=== PATIENT | female | born 1995 | race Hispanic/Latino ===

== ENCOUNTER 2021-04-09 00:35 | Outpatient (CLI) | payer OTHER ==
[~2021-04-09] VITALS: Ht 162.6 cm; Wt 63.1 kg
[2021-04-09 00:53] VITALS: BP 120/79
[2021-04-09 02:13] VITALS: BP 128/80
== END 2021-04-09 02:31 | disposition home or self-care (01) ==
LOC: M LDO 00:35
PROVIDERS: ATTEND Obstetrics & Gynecology
DX: O47.1 False labor at or after 37 completed weeks of gestation (principal); Z3A.38 38 weeks gestation of pregnancy

== ENCOUNTER 2021-04-09 17:34 | Inpatient (IN) | payer OTHER ==
[~2021-04-09] VITALS: Ht 162.6 cm; Wt 61.8 kg
[2021-04-09] MEDS ORDERED: LACTATED RINGER'S 1000 ML IV STA (17:56)
[2021-04-09] MEDS ORDERED: PENICILLIN G POTASSIUM IV 5 MU in D5W MINI-BAG PLUS 100 ML IV STA (17:56)
[2021-04-09] MEDS ORDERED: OXYTOCIN DRIP 30 UNITS in IV 1 EA IV PRN (18:00)
[2021-04-09] MEDS ORDERED: LIDOCAINE 1% MDV 20ML VIAL INFIL PRN (18:00)
[2021-04-09] MEDS ORDERED: LR 1,000 ML IV SCH (18:00)
[2021-04-09] MEDS ORDERED: PENICILLIN G POTASSIUM 5 MU VIAL As Ordered ONE (18:04)
[2021-04-09 18:30] LABS: HEMATOCRIT 31.2 % (36.0-47.0); HEMOGLOBIN 10.2 g/dl (12.0-15.5); MEAN CORPUSCULAR HEMOGLOBIN 26.6 pg (27.0-33.0); MEAN CORPUSCULAR HGB CONC 32.7 g/dl (32.0-36.5); MEAN CORPUSCULAR VOLUME 81.5 fl (80.0-96.0); PLATELET COUNT, AUTOMATED 250 10^3/uL (150-450); RED BLOOD COUNT 3.83 10^6/uL (4.00-5.40); WHITE BLOOD COUNT 7.4 10^3/uL (4.0-10.0)
[2021-04-09] MEDS ORDERED: FENTANYL 2MCG/ML ROPIVACAINE 0.2% IN 0.9% NACL 100ML IVBAG As Ordered ONE (18:47)
[2021-04-09] MEDS ORDERED: MEASLES,MUMPS,RUBELLA VACCINE INJ (MMR-II) (90707) SC SCH (19:55)
[2021-04-09] MEDS ORDERED: METHYLERGONOVINE MALEATE 0.2 MG TAB PO PRN (19:55)
[2021-04-09] MEDS ORDERED: DIBUCAINE 1% OINTMENT 30GM TOP PRN (19:55)
[2021-04-09] MEDS ORDERED: RHOGAM 300 MCG (1500 IU) INJ (J2790) IM SCH (19:55)
[2021-04-09] MEDS ORDERED: ACETAMINOPHEN TAB 650MG DOSE (2X325MG) PO PRN (19:55)
[2021-04-09] MEDS: IBUPROFEN 800 MG TAB PO PRN (20:49)
[2021-04-09 20:52] VITALS: BP 109/67
[2021-04-09] MEDS ORDERED: PENICILLIN G POTASSIUM IV 2.5 MU in IV 1 EA IV SCH (22:15)
[2021-04-10 06:07] VITALS: BP 121/64
[2021-04-10] MEDS: PRENATAL VITAMINS CHEWABLE TABLET PO SCH (08:12)
[2021-04-10] MEDS: IBUPROFEN 800 MG TAB PO PRN ×2 (08:21→20:01)
[2021-04-10] MEDS: DOCUSATE SODIUM 100MG CAPSULE PO PRN ×2 (08:21→20:43)
[2021-04-10 18:00] VITALS: BP 109/74
[2021-04-11 06:00] VITALS: BP 119/74
[2021-04-11] MEDS ORDERED: ACET1TAB55 PO (07:19)
[2021-04-11] MEDS ORDERED: IBUP80TA PO (07:19)
[2021-04-11] MEDS: PRENATAL VITAMINS CHEWABLE TABLET PO SCH (08:02)
[2021-04-11] MEDS: DOCUSATE SODIUM 100MG CAPSULE PO PRN (08:02)
[2021-04-11] MEDS: IBUPROFEN 800 MG TAB PO PRN (08:03)
== END 2021-04-11 11:40 | disposition home or self-care (01) | DRG 807 ==
LOC: M LDO 17:34 → M LDI 18:13 → M OBS 20:47
PROVIDERS: ADMIT Registered Nurse; ATTEND Registered Nurse
PROC: 10E0XZZ Delivery of Products of Conception, External Approach (ICD-10-PCS; principal; 2021-04-09)
DX: O62.3 Precipitate labor (principal); Z37.0 Single live birth; Z3A.38 38 weeks gestation of pregnancy; O99.824 Streptococcus B carrier state complicating childbirth